=== PATIENT | female | born 1940 | race Caucasian/White ===

== ENCOUNTER 2023-12-17 09:12 | Day surgery (SDC) | payer MEDICARE, BC, SELFPAY ==
[2023-12-11 07:49] VITALS: BMI 35.8
--- NOTE | 2023-12-17 | ECG_ITS ---
Test Reason : AFIB QUESTION CHANGE IN RYTHM *PATIENT SAT UP Blood Pressure : / mmHG Vent. Rate : 057 BPM Atrial Rate : 000 BPM P-R Int : 000 ms QRS Dur : 094 ms QT Int : 486 ms P-R-T Axes : 000 017 182 degrees QTc Int : 473 ms Atrial fibrillation with slow ventricular response Moderate voltage criteria for LVH, may be normal variant ( R in aVL , Sokolow-Hamilton ) Marked ST abnormality, possible lateral subendocardial injury Abnormal ECG No previous ECGs available Referred By: Pricila Finley Electronically Signed By:OLU JAUREGUI
[2023-12-17 10:29] VITALS: BP 142/58; PULSE 58; RESP 18; TEMP 36.9; O2SAT 97; BMI 36.0
[2023-12-17] MEDS: Lactated Ringers 1,000 ML 100 ML IVCONT (10:42)
--- NOTE | 2023-12-17 10:55 | PC.NURSE ---
pt in afib with ? rhythm changes no current ekg dr chong aware ekg ordered pt aware
--- NOTE | 2023-12-17 11:55 | HO.ANESPROP2 ---
Documented by User: Flora Bautista NP 12/16/23 11:50 HPI - Anesthesia Eval Consult details Narrative: 83yo F for Right Lateral Rectus Eye Muscle Recession Medically optimized per [facility] Eliquis for afib Myositis PMFSH Past Medical History Medical History (Updated 12/11/23 @ 07:28 by Poly Devine RN) Trochanteric bursitis Vitamin D deficiency Osteopenia Osteoarthritis Obesity Myositis Myalgia LVH (left ventricular hypertrophy) Hx of breast cancer Back pain Left atrial enlargement Thyroid disease Hypokalemia HTN (hypertension) Hyperlipidemia History of esophageal dilatation Elevated glucose Dysthymic disorder Diverticulosis Cataract Atrial fibrillation On anticoagulant therapy Achalasia Abnormal mammogram Surgical History Surgical History (Updated 12/16/23 @ 11:31 by Pricila Cruz RN) Hx of knee surgery History of back surgery Hx of cholecystectomy Hx of esophagomyotomy History of tonsillectomy and adenoidectomy Hx of tubal ligation H/O colonoscopy History of carpal tunnel release Hx of breast biopsy History of lumpectomy of right breast Social History Social History Are you a primary direct care supervisor to a significant other at home: No Do you presently have visiting nurse or other home services: No Patient Tobacco Use Status: Former Tobacco user Use of substances other than those prescribed or required for medical reasons: No Have you been hit, kicked, punched, or otherwise hurt by someone within the past year? If so, by whom?: No Are you DNR?: No Advance Directives: No Advance Directives Information Provided: Yes Advance Directives on File: No Recently lost weight without trying: No Eating poorly because of decreased appetite: No Nutrition Risks: No Nutritional Risk Patient : No : No Meds Allergies Allergy/AdvReac Type Severity Reaction Status Date / Time acetaminophen [From Percocet] Allergy Vomiting Verified 12/11/23 07:35 atorvastatin [From Lipitor] Allergy Muscle Pain Verified 12/11/23 07:35 lisinopril Allergy Cough Verified 12/11/23 07:35 oxycodone [From Percocet] Allergy Vomiting Verified 12/11/23 07:35 simvastatin [From Zocor] Allergy Muscle Pain Verified 12/11/23 07:35 tizanidine Allergy Hallucinati Verified 12/11/23 07:35 ons Home Medications ?Medication ?Instructions ?Recorded ?Confirmed ?Last Taken ?Type Vitamin C 12/11/23 Unknown History acetaminophen 650 mg 1,300 mg PO Q8H 12/11/23 12/11/23 Unknown History tablet,extended release (Tylenol 8 Hour) amlodipine 10 mg tablet 10 mg PO DAILY 12/11/23 12/11/23 12/17/23 History amoxicillin 500 mg capsule 500 mg PO TID 12/11/23 12/11/23 Unknown History anastrozole 1 mg tablet 1 mg PO DAILY 12/11/23 12/11/23 12/17/23 History apixaban 5 mg tablet (Eliquis) 5 mg PO BID 12/11/23 12/11/23 12/15/23 History cholecalciferol (vitamin D3) 50 50 mcg PO DAILY 12/11/23 12/11/23 Unknown History mcg (2,000 unit) tablet ferrous sulfate 27 mg iron tablet 27 mg PO DAILY 12/11/23 12/11/23 Unknown History fluoride (sodium) 1.1 % dental 1 appl dental DAILY 12/11/23 12/11/23 Unknown History cream (PreviDent 5000 Plus) gabapentin 800 mg tablet 800 mg PO TID 12/11/23 12/11/23 Unknown History levothyroxine 75 mcg tablet 75 mcg PO DAILY 12/11/23 12/11/23 12/17/23 History losartan 100 mg tablet 100 mg PO DAILY 12/11/23 12/11/23 Unknown History metoprolol tartrate 25 mg tablet 12.5 mg PO BID 12/11/23 12/11/23 12/17/23 History multivitamin 1 tab PO DAILY 12/11/23 12/11/23 Unknown History nitroglycerin 0.4 mg sublingual 0.4 mg sublingual NEEDED muscle 12/11/23 12/11/23 Unknown History tablet spasm omega 5-xgh-zyr-fish oil 1,200 mg 1 cap PO DAILY 12/11/23 12/11/23 Unknown History (144 mg-216 mg) capsule (Fish Oil) omeprazole 20 mg capsule,delayed 20 mg PO BID PRN Acid Reflux 12/11/23 12/11/23 Unknown History release pravastatin 40 mg tablet 40 mg PO DAILY 12/11/23 12/11/23 Unknown History pyridoxine (vitamin B6) 100 mg 100 mg PO DAILY 12/11/23 12/11/23 Unknown History tablet (Vitamin B-6) Exam Height,Weight and Vital Signs: Height 5 ft 1.61 in Weight 87.7 kg Pertinent Lab Results Pertinent Lab Results: Chemistries from [facility] 11/2023 [place] Assessment and Plan Assessment Anesthesia Assessment: Chart Reviewed Documented by User: Pricila Finley DO 12/17/23 12:29 HPI - Anesthesia Eval Consult details Narrative: 83yo F for Right Lateral Rectus Eye Muscle Recession Medically optimized per [facility] Eliquis for afib Myositis EKG performed in pre-op on day of surgery due to rhythm abnormalities - read as afib with slow ventricular rate. PAT team was able to obtain previous old EKG which looked similar. [facility] Past Medical History Medical History (Updated 12/11/23 @ 07:28 by Poly Devine RN) Trochanteric bursitis Vitamin D deficiency Osteopenia Osteoarthritis Obesity Myositis Myalgia LVH (left ventricular hypertrophy) Hx of breast cancer Back pain Left atrial enlargement Thyroid disease Hypokalemia HTN (hypertension) Hyperlipidemia History of esophageal dilatation Elevated glucose Dysthymic disorder Diverticulosis Cataract Atrial fibrillation On anticoagulant therapy Achalasia Abnormal mammogram Family History Family history of problems with anesthesia: No Surgical History Surgical History (Updated 12/16/23 @ 11:31 by Pricila Cruz RN) Hx of knee surgery History of back surgery Hx of cholecystectomy Hx of esophagomyotomy History of tonsillectomy and adenoidectomy Hx of tubal ligation H/O colonoscopy History of carpal tunnel release Hx of breast biopsy History of lumpectomy of right breast History of Problems with Anesthesia: No Social History Social History Are you a primary direct care supervisor to a significant other at home: No Do you presently have visiting nurse or other home services: No Patient Tobacco Use Status: Former Tobacco user Use of substances other than those prescribed or required for medical reasons: No Have you been hit, kicked, punched, or otherwise hurt by someone within the past year? If so, by whom?: No Are you DNR?: No Advance Directives: No Advance Directives Information Provided: Yes Advance Directives on File: No Recently lost weight without trying: No Eating poorly because of decreased appetite: No Nutrition Risks: No Nutritional Risk Patient : No : No Meds Allergies Allergy/AdvReac Type Severity Reaction Status Date / Time acetaminophen [From Percocet] Allergy Vomiting Verified 12/11/23 07:35 atorvastatin [From Lipitor] Allergy Muscle Pain Verified 12/11/23 07:35 lisinopril Allergy Cough Verified 12/11/23 07:35 oxycodone [From Percocet] Allergy Vomiting Verified 12/11/23 07:35 simvastatin [From Zocor] Allergy Muscle Pain Verified 12/11/23 07:35 tizanidine Allergy Hallucinati Verified 12/11/23 07:35 ons Home Medications ?Medication ?Instructions ?Recorded ?Confirmed ?Last Taken ?Type Vitamin C 12/11/23 Unknown History acetaminophen 650 mg 1,300 mg PO Q8H 12/11/23 12/11/23 Unknown History tablet,extended release (Tylenol 8 Hour) amlodipine 10 mg tablet 10 mg PO DAILY 12/11/23 12/11/23 12/17/23 History amoxicillin 500 mg capsule 500 mg PO TID 12/11/23 12/11/23 Unknown History anastrozole 1 mg tablet 1 mg PO DAILY 12/11/23 12/11/23 12/17/23 History apixaban 5 mg tablet (Eliquis) 5 mg PO BID 12/11/23 12/11/23 12/15/23 History cholecalciferol (vitamin D3) 50 50 mcg PO DAILY 12/11/23 12/11/23 Unknown History mcg (2,000 unit) tablet ferrous sulfate 27 mg iron tablet 27 mg PO DAILY 12/11/23 12/11/23 Unknown History fluoride (sodium) 1.1 % dental 1 appl dental DAILY 12/11/23 12/11/23 Unknown History cream (PreviDent 5000 Plus) gabapentin 800 mg tablet 800 mg PO TID 12/11/23 12/11/23 Unknown History levothyroxine 75 mcg tablet 75 mcg PO DAILY 12/11/23 12/11/23 12/17/23 History losartan 100 mg tablet 100 mg PO DAILY 12/11/23 12/11/23 Unknown History metoprolol tartrate 25 mg tablet 12.5 mg PO BID 12/11/23 12/11/2312/16/24 History multivitamin 1 tab PO DAILY 12/11/23 12/11/23 Unknown History nitroglycerin 0.4 mg sublingual 0.4 mg sublingual NEEDED muscle 12/11/23 12/11/23 Unknown History tablet spasm omega 0-nou-hbj-fish oil 1,200 mg 1 cap PO DAILY 12/11/23 12/11/23 Unknown History (144 mg-216 mg) capsule (Fish Oil) omeprazole 20 mg capsule,delayed 20 mg PO BID PRN Acid Reflux 12/11/23 12/11/23 Unknown History release pravastatin 40 mg tablet 40 mg PO DAILY 12/11/23 12/11/23 Unknown History pyridoxine (vitamin B6) 100 mg 100 mg PO DAILY 12/11/23 12/11/23 Unknown History tablet (Vitamin B-6) Exam Exam Date and Time: 12/17/23 1155 Height,Weight and Vital Signs: Height 5 ft 1.61 in Weight 87.7 kg Vital Signs Temperature 98.5 F 12/17/23 10:29 Pulse Rate 58 12/17/23 10:29 Respiratory Rate 18 12/17/23 10:29 Blood Pressure 142/58 H 12/17/23 10:29 Pulse Oximetry 97 12/17/23 10:29 Oxygen Delivery Method Room Air 12/17/23 10:29 Temperature 98.5 F 12/17/23 10:29 Pulse Rate 58 12/17/23 10:29 Respiratory Rate 18 12/17/23 10:29 Blood Pressure 142/58 H 12/17/23 10:29 Pulse Oximetry 97 12/17/23 10:29 Oxygen Delivery Method Room Air 12/17/23 10:29 Airway Mallampati Class: II TM Dist: <=3cm Neck ROM: Limited Loose/Missing/Broken Teeth: No (patient denies any loose or broken teeth) Heart: S1S2 Lungs: CTAB Assessment and Plan Assessment Anesthesia Assessment: Anesthesia Plan Discussed and Chart Reviewed Final Anesthetic Review Family History of Problems with Anesthesia: No History of Problems with Anesthesia: No NPO: Yes ASA Class: III Final Preanesthetic Review: No Changes in Pt Med Stat, Meds/Allgs Chart Reviewed, Consent Obtained/Reviewed and Anes Risks/Benef Reviewed Patient Risk: Intermediate Procedure Risk: Low Anesthetic Plan Anesthetic Plan: GA and Agree w/ Assess. and Plan Disposition: Standard PACU
[2023-12-17 12:51] VITALS: BP 134/70; PULSE 63; RESP 18; TEMP 36.3; O2SAT 98
[2023-12-17 12:56] VITALS: BP 139/62; PULSE 70; RESP 18; O2SAT 100
--- NOTE | 2023-12-17 12:59 | HO.OPHTHAL ---
Ophthalmology Operative Note Date of Service: 12/17/23 Narrative: Diagnosis exotropia. Procedure recession of right lateral rectus [address] Miller. Anesthesia general. Complications none. The patient was brought to the operating room placed under general anesthesia. The eyes were prepped and draped in the usual sterile ophthalmic fashion. A lid speculum was placed in the right eye and a peritomy was created around the lateral rectus. The muscle was hooked and secured with a double-armed Vicryl suture. It was disinserted from the globe and reattached to a position 6 mm behind the original insertion. Conjunctiva was closed with interrupted Vicryl sutures. The patient was then awoken from general anesthesia and discharged to postoperative recovery in good condition.
[2023-12-17 13:01] VITALS: BP 135/64; PULSE 65; RESP 18; O2SAT 100
[2023-12-17 13:06] VITALS: BP 136/72; PULSE 62; RESP 18; O2SAT 96
[2023-12-17 13:22] VITALS: BP 148/75; PULSE 59; RESP 18; TEMP 36.7; O2SAT 94
== END 2023-12-17 13:42 | disposition home or self-care (01) ==
PROVIDERS: Visit Provider Ophthalmology
PROC: (CPT 67311; principal; 2023-12-17 11:30)
DX: H51.11 Convergence insufficiency (principal); I10 Essential (primary) hypertension; I48.91 Unspecified atrial fibrillation; E78.5 Hyperlipidemia, unspecified; C50.411 Malignant neoplasm of upper-outer quadrant of right female breast; Z79.811 Long term (current) use of aromatase inhibitors; Z17.0 Estrogen receptor positive status [ER+]; R73.09 Other abnormal glucose; G47.33 Obstructive sleep apnea (adult) (pediatric); Z79.01 Long term (current) use of anticoagulants; Z79.899 Other long term (current) drug therapy; Z88.8 Allergy status to other drugs, medicaments and biological substances; Z99.89 Dependence on other enabling machines and devices
CPT/HCPCS: 67311; 93005; J1100; J1596; J2003; J2405; J2704; J3010

== ENCOUNTER → 2023-12-17 10:48 | Outpatient (BNV) | payer MEDICARE, BC, SELFPAY | PROVIDERS: Visit Provider Internal Medicine | DX: I48.91 Unspecified atrial fibrillation (principal); R94.31 Abnormal electrocardiogram [ECG] [EKG] | CPT/HCPCS: 93010 ==